=== PATIENT | female | born 1965 | race Caucasian/White ===

== ENCOUNTER 2021-02-27 16:34 | Emergency (ER) | payer OTHER ==
[~2021-02-27 16:34] MED LIST: ATROVENT HFA12.9 GM INH; PREDNISONE 20 M20 MG PO; VENTOLIN HFA 66.7 GM INH; VIBRAMYCIN100 MG PO
== END 2021-02-27 18:41 | disposition left against medical advice (07) ==
LOC: ER1 16:34
DX: Z53.21 Procedure and treatment not carried out due to patient leaving prior to being seen by health care provider (principal)

== ENCOUNTER 2021-04-01 15:19 | Emergency (ER) | payer OTHER ==
[2021-04-01 16:54] LABS: HEMOGLOBIN 14.6 gm/dl (12.3-15.3); RED BLOOD COUNT 5.08 M/UL (4.00-5.10); WHITE BLOOD COUNT 7.1 K/UL (4.5-11.0)
[2021-04-01 17:20] LABS: BUN/CREATININE RATIO 38 (0-10)
[2021-04-01] MEDS ORDERED: PREDNISONE50 MG PO (19:45)
[2021-04-01] MEDS ORDERED: AZITHROMYCIN250 MG PO (19:45)
[2021-04-01] MEDS ORDERED: AUGMENTIN 875-1 EACH PO (19:47)
== END 2021-04-01 20:08 | disposition home or self-care (01) ==
LOC: ER1 15:19
PROVIDERS: Physician Assistant
DX: J44.1 Chronic obstructive pulmonary disease with (acute) exacerbation (principal); F17.210 Nicotine dependence, cigarettes, uncomplicated; M19.90 Unspecified osteoarthritis, unspecified site; Z90.710 Acquired absence of both cervix and uterus; Z20.822 Contact with and (suspected) exposure to COVID-19
CPT/HCPCS: 36600; 71045; 80053; 82550; 82553; 82803; 83874; 84484; 85025; 93005; 94640; 94664; 94760; 99285; U0002